=== PATIENT | male | born 1965 | race Caucasian/White ===

== ENCOUNTER 2017-04-02 10:56 | Inpatient (IN) | payer BC ==
[~2017-04-02] VITALS: Ht 182.9 cm; Wt 1192.9 kg
[2017-04-02 11:39] LABS: RED BLOOD COUNT 5.53 M/UL (4.20-5.50); WHITE BLOOD COUNT 16.5 K/UL (4.5-11.0)
[2017-04-02 12:02] LABS: BUN/CREATININE RATIO 15 (0-10)
[2017-04-03] MEDS ORDERED: ZESTORETIC 10-1 EACH PO (01:56)
[2017-04-03 05:44] LABS: BUN/CREATININE RATIO 19 (0-10)
[2017-04-03 06:29] LABS: HEMOGLOBIN 13.5 gm/dl (14.0-17.5); RED BLOOD COUNT 4.72 M/UL (4.20-5.50)
[2017-04-04 05:57] LABS: BUN/CREATININE RATIO 20 (0-10)
[2017-04-05 06:08] LABS: BUN/CREATININE RATIO 14 (0-10)
[2017-04-06 05:41] LABS: HEMOGLOBIN 12.8 gm/dl (14.0-17.5); RED BLOOD COUNT 4.44 M/UL (4.20-5.50)
[2017-04-06 05:44] LABS: WHITE BLOOD COUNT 5.8 K/UL (4.5-11.0)
[2017-04-06 06:01] LABS: BUN/CREATININE RATIO 12 (0-10)
[2017-04-07 05:01] LABS: RED BLOOD COUNT 4.18 M/UL (4.20-5.50)
[2017-04-07 05:07] LABS: WHITE BLOOD COUNT 7.7 K/UL (4.5-11.0)
[2017-04-07 05:22] LABS: BUN/CREATININE RATIO 12 (0-10)
[2017-04-07] MEDS ORDERED: IBUPROFEN800 MG PO (13:33)
== END 2017-04-07 16:00 | disposition home or self-care (01) | DRG 417 ==
LOC: ER1 10:56 → ZEROF 13:49 → MED SURG 4 13:55 → PROG CARE 21:30 → MED SURG 4 23:27
PROVIDERS: Emergency Medicine; Surgery; ADMIT Internal Medicine Infectious Disease
PROC: BF101ZZ Fluoroscopy of Bile Ducts using Low Osmolar Contrast (ICD-10-PCS; 2017-04-06)
PROC: 0FT44ZZ Resection of Gallbladder, Percutaneous Endoscopic Approach (ICD-10-PCS; principal; 2017-04-06 13:15)
DX: K80.00 Calculus of gallbladder with acute cholecystitis without obstruction (principal); K85.10 Biliary acute pancreatitis without necrosis or infection; E87.2 Acidosis; K56.7 Ileus, unspecified; E86.0 Dehydration; I10 Essential (primary) hypertension; E87.6 Hypokalemia; R01.1 Cardiac murmur, unspecified; F17.290 Nicotine dependence, other tobacco product, uncomplicated; E27.9 Disorder of adrenal gland, unspecified; Z79.899 Other long term (current) drug therapy; Z83.3 Family history of diabetes mellitus; Z82.49 Family history of ischemic heart disease and other diseases of the circulatory system
CPT/HCPCS: ECHO; 36415; 47531; 74181; 80048; 80053; 80076; 81001; 82248; 83036; 83605; 83690; 85025; 85027; 85610; 85730; 87040; 93005; 93306; C9113; J0295; J1335; J1650; J1885; J2250; J2270; J2405; J2710; J3010; J7030; J7050; J7120; Q9962

== ENCOUNTER → 2021-01-16 | Outpatient (CLI) | payer BC ==
[~2021-01-16] MED LIST: IBUPROFEN800 MG PO; ZESTORETIC 10-1 EACH PO
== END ==
LOC: US 13:04
DX: R80.9 Proteinuria, unspecified (principal); K76.0 Fatty (change of) liver, not elsewhere classified

== ENCOUNTER → 2021-04-09 | Outpatient (CLI) | payer BC ==
[~2021-04-09] VITALS: Ht 182.9 cm; Wt 113.4 kg
[~2021-04-09] MED LIST changes: +ATORVASTATIN CA40 MG PO
== END | disposition home or self-care (01) ==
LOC: CT 08:27
DX: N05.9 Unspecified nephritic syndrome with unspecified morphologic changes (principal); R80.9 Proteinuria, unspecified; I10 Essential (primary) hypertension; E66.9 Obesity, unspecified; Z68.36 Body mass index [BMI] 36.0-36.9, adult; Z79.899 Other long term (current) drug therapy
CPT/HCPCS: 88305; 88313; 88346; 88348